=== PATIENT | female | born 1955 | race Caucasian/White ===

== ENCOUNTER 2017-10-31 14:10 | Day surgery (SDC) | payer MEDICAID ==
[2017-10-26 15:01] LABS: ALANINE AMINOTRANSFERASE 24 U/L (12-78); ALBUMIN 3.5 G/DL (3.4-5.0); ALBUMIN/GLOBULIN RATIO 0.8 (1.1-1.5); ALKALINE PHOSPHATASE 82 IU/L (46-116); ANION GAP 3 (8-16); ASPARTATE AMINO TRANSFERASE 18 U/L (10-37); BILIRUBIN,TOTAL 0.4 MG/DL (0.1-1.0); BLOOD UREA NITROGEN 22 MG/DL (7-18); BUN/CREATININE RATIO 27.8 (6.6-38.0); CALCIUM 10.7 MG/DL (8.5-10.1); CHLORIDE 104 MMOL/L (99-107); CREATININE 0.79 MG/DL (0.40-0.90); GLUCOSE 111 MG/DL (70-104); POTASSIUM 4.2 MMOL/L (3.5-5.1); SODIUM 141 MMOL/L (135-145); TOTAL CARBON DIOXIDE 33.6 MMOL/L (24-32); TOTAL PROTEIN 7.7 G/DL (6.4-8.2); eGFR 74 ML/MIN
[2017-10-31] VITALS (11 sets, daily range): BP systolic 103–132; BP diastolic 53–91
[~2017-10-31] VITALS: Ht 172.7 cm; Wt 120.0 kg
[~2017-10-31 14:10] MED LIST: BACDS PO; CYCL-1 PO
[2017-10-31] MEDS ORDERED: LIDOcaine 1% (10mg/ml) 2ml vial ONE (14:39)
[2017-10-31] MEDS ORDERED: PANT40TA4 PO (14:53)
[2017-10-31] MEDS ORDERED: NIFE30TA88 PO (14:54)
[2017-10-31] MEDS ORDERED: FURO40TA4 PO (14:55)
[2017-10-31] MEDS ORDERED: POTA8CAP9 PO (14:55)
[2017-10-31] MEDS ORDERED: RIVA20TA PO (14:56)
[2017-10-31] MEDS ORDERED: CARV6.253 PO (14:57)
[2017-10-31] MEDS ORDERED: LORA10TA7 PO (14:57)
[2017-10-31] MEDS ORDERED: HYDR-565 PO (14:58)
[2017-10-31] MEDS ORDERED: FLUT16SP2 BOTHNARES (14:59)
[2017-10-31] MEDS ORDERED: fentaNYL/PF 50MCG/1 ML 2ML syringe IV ONE (15:00)
[2017-10-31] MEDS ORDERED: amiodarone in dextrose, iso-osm 150mg/100ml bag IV ONE (15:00)
[2017-10-31] MEDS ORDERED: MIDAZolam 5mg/ml 2ml vial IV ONE (15:00)
[2017-10-31] MEDS ORDERED: BACL20TA PO (15:00)
[2017-10-31] MEDS ORDERED: normal saline 1000ml 1,000 ML IV SCH (15:00)
[2017-10-31] MEDS ORDERED: ALB0.5UD IH (15:00)
[2017-10-31] MEDS ORDERED: TIOT18CA3 INH (15:02)
[2017-10-31] MEDS ORDERED: LEVA15HF4 INH (15:07)
[2017-10-31] MEDS ORDERED: FLU VACC QS2017-18 36MOS UP/PF 60 MCG/0.5 ML SYRINGE IMVAC ONE (16:30)
== END 2017-10-31 18:15 | disposition home or self-care (01) ==
LOC: SSTAY O 14:10
PROVIDERS: ATTEND Internal Medicine Interventional Cardiology
DX: I48.1 Persistent atrial fibrillation (principal); E78.00 Pure hypercholesterolemia, unspecified; I11.0 Hypertensive heart disease with heart failure; I50.31 Acute diastolic (congestive) heart failure; I65.23 Occlusion and stenosis of bilateral carotid arteries; I35.0 Nonrheumatic aortic (valve) stenosis; B18.2 Chronic viral hepatitis C; J43.9 Emphysema, unspecified; K21.9 Gastro-esophageal reflux disease without esophagitis; Z96.653 Presence of artificial knee joint, bilateral; Z96.641 Presence of right artificial hip joint; Z88.0 Allergy status to penicillin; Z87.891 Personal history of nicotine dependence; Z88.1 Allergy status to other antibiotic agents; Z79.899 Other long term (current) drug therapy; Z98.890 Other specified postprocedural states
CPT/HCPCS: 36415; 80053; 92960; 93005; J2250; J3010; J3490; J7030

== ENCOUNTER 2018-10-31 07:42 | Day surgery (SDC) | payer MEDICAID ==
[~2018-10-31] VITALS: Ht 172.7 cm; Wt 118.2 kg
[~2018-10-31 07:42] MED LIST changes: +ALB0.5UD IH; -BACDS PO; +BACL20TA PO; +CARV6.253 PO; -CYCL-1 PO; +FLUT16SP2 BOTHNARES; +FURO40TA4 PO; +HYDR-4353 PO; +LEVA15HF4 INH; +LORA10TA7 PO; +NIFE30TA88 PO; +PANT40TA4 PO; +POTA8CAP9 PO; +RIVA20TA PO; +TIOT18CA3 INH
[2018-10-31 07:50] VITALS: BP 162/99
[2018-10-31] MEDS ORDERED: DOCU100C41 PO (08:02)
[2018-10-31] MEDS ORDERED: ATOR20TA PO (08:03)
[2018-10-31] MEDS ORDERED: POLOS EACHEYE (08:03)
[2018-10-31] MEDS ORDERED: fentaNYL/PF 50MCG/1 ML 2ML syringe ONE (08:10)
[2018-10-31] MEDS ORDERED: MIDAZolam 5mg/5ml vial ONE (08:11)
[2018-10-31] MEDS ORDERED: LIDOcaine Viscous 15ml cup ONE (08:11)
[2018-10-31 10:12] VITALS: BP 126/77
[2018-10-31 10:19] VITALS: BP 110/74
[2018-10-31 10:29] VITALS: BP 95/88
[2018-10-31 10:39] VITALS: BP 118/74
[2018-10-31 10:49] VITALS: BP 109/64
== END 2018-10-31 11:10 | disposition home or self-care (01) ==
LOC: GI LAB 07:42
PROVIDERS: ATTEND Internal Medicine Gastroenterology
DX: D12.2 Benign neoplasm of ascending colon (principal); K63.5 Polyp of colon; K29.50 Unspecified chronic gastritis without bleeding; K29.80 Duodenitis without bleeding; K21.0 Gastro-esophageal reflux disease with esophagitis; I89.0 Lymphedema, not elsewhere classified; K22.8 Other specified diseases of esophagus
CPT/HCPCS: 43239; 45385; 99152; 99153; J2250; J3010; J7030; A4620